=== PATIENT | male | born 1975 | race Two or more races ===

== ENCOUNTER 2016-11-29 01:55 | Emergency (ER) | payer SELFPAY ==
[~2016-11-29] VITALS: Ht 177.8 cm; Wt 95.3 kg
--- NOTE | 2016-11-29 02:00 | NUR ---
To bed 3 a 44 yo male [id number] with c/o of face pain, s/p trip and fall. Patient noted with facial and extremity abrasions, affirmed etoh intake last night. No s/s of acute distress, acute bleeding. Respiration even and unlabored. Gowned. Awaiting for er md [place].
[2016-11-29] MEDS ORDERED: TDAP [DIPH/PERTUSSIS/TET] 0.5 ML VIAL IM ONE ×2 (02:30)
--- NOTE | 2016-11-29 02:55 | NUR ---
Wound care done, noted patient with a small cut on the upper lip, swollen upper lip, inner upper lip noted with cut wounds, one upper tooth chipped.
[2016-11-29] MEDS ORDERED: IV NS 0.9% 1,000 ML ONE (03:45)
[2016-11-29] MEDS ORDERED: IV SET PRIMARY 1 EA INFUS.SET MC ONE (03:45)
--- NOTE | 2016-11-29 03:45 | NUR ---
xr at bedside.
[2016-11-29] MEDS ORDERED: IV NS 0.9% 1,000 ML BAG IV ONE (04:00)
--- NOTE | 2016-11-29 04:00 | NUR ---
started a saline lock 18g on the rfa.
--- NOTE | 2016-11-29 04:38 | NUR ---
Dr Feng at bedside.
--- NOTE | 2016-11-29 05:22 | NUR ---
IV removed. Catheter intact and site benign. Pressure and 4x4 applied to site. No bleeding noted. Patient refused to sign discharge instruction. Patient is ambulatory with steady gait. Instructed not to drive.
[2016-11-29 05:24] VITALS: BP 157/96
== END 2016-11-29 05:20 | disposition home or self-care (01) ==
LOC: EDBD 01:57 → ER 01:57
DX: S02.5XXA Fracture of tooth (traumatic), initial encounter for closed fracture (principal); S01.511A Laceration without foreign body of lip, initial encounter; S80.02XA Contusion of left knee, initial encounter; S80.01XA Contusion of right knee, initial encounter; S00.83XA Contusion of other part of head, initial encounter; F10.10 Alcohol abuse, uncomplicated; W18.39XA Other fall on same level, initial encounter; Y93.89 Activity, other specified; Y92.811 Bus as the place of occurrence of the external cause; Y99.9 Unspecified external cause status
CPT/HCPCS: 70450-TC; 70486-TC; 72125-TC; 73564-TC; 90715; A4606; A6403; J7030; Z7610